=== PATIENT | female | born 1990 | race African-American/Black ===

== ENCOUNTER 2016-09-04 04:50 | Outpatient (CLI) | payer MEDICAID ==
[2016-09-04 05:26] LABS: APPEARANCE,URINE CLOUDY; BILIRUBIN,URINE NEGATIVE (NEGATIVE); GLUCOSE, URINE NEGATIVE (NEGATIVE); KETONES,URINE NEGATIVE (NEGATIVE); LEUKOCYTE ESTERASE,URINE MODERATE (NEGATIVE); NITRITE,URINE NEGATIVE (NEGATIVE); PROTEIN,URINE NEGATIVE (NEGATIVE); URINE SPECIFIC GRAVITY 1.012; UROBILINOGEN,URINE NEGATIVE mg/dL (<2.0)
[2016-09-04 05:41] LABS: URINE BARBITURATES SCREEN NEGATIVE; URINE METHADONE SCREEN NEGATIVE; URINE OPIATES LOW NEGATIVE; URINE PHENCYCLIDINE SCREEN NEGATIVE
--- NOTE | 2016-09-04 10:46 | L&D Admission Assessment ---
LD ADM ASMT Datetime Report Generated by CPN: 09/04/2016 10:45 Weight (lb): 174 (09/04/2016 05:01:QS system process) Weight (kg): 79.1 (09/04/2016 05:01:QS system process) Pain Scale: 2 (09/04/2016 05:46:Samantha Mathews RN) Pain Presence: Intermittent (09/04/2016 05:46:Samantha Mathews RN) Pain Presence: Intermittent (09/04/2016 05:30:Samantha Mathews RN) Pain Type: Contraction (09/04/2016 05:46:Samantha Mathews RN) Pain Type: Contraction (09/04/2016 05:30:Samantha Mathews RN) Pain Location: Abdomen (09/04/2016 05:46:Samantha Mathews RN) Pain Location: Abdomen (09/04/2016 05:30:Samantha Mathews RN) Pain Goal: 1 (09/04/2016 05:46:Samantha Mathews RN) Frequency (min): x1 (09/04/2016 05:46:Samantha Mathews RN) Frequency (min): x2 (09/04/2016 05:30:Samantha Mathews RN) Duration (sec): 120 (09/04/2016 05:46:Samantha Mathews RN) Duration (sec): 40-100 (09/04/2016 05:30:Samantha Mathews RN) Quality: Mild (09/04/2016 05:46:Samantha Mathews RN) Quality: Mild (09/04/2016 05:30:Samantha Mathews RN) Resting Tone Embarrass: Relaxed (09/04/2016 05:46:Samantha Mathews RN) Resting Tone Embarrass: Relaxed (09/04/2016 05:30:Samantha Mathews RN) Contraction Comments: TOCO applied explained to pt (09/04/2016 05:06:Samantha Mathews RN) Dilatation (cm): 3.0 (09/04/2016 06:23:Samantha Mathews RN) Dilatation (cm): 3.0 (09/04/2016 05:05:Samantha Mathews RN) Effacement (%): 80 (09/04/2016 06:23:Samantha Mathews RN) Effacement (%): 80 (09/04/2016 05:05:Samantha Mathews RN) Station: -2 (09/04/2016 06:23:Samantha Mathews RN) Station: -2 (09/04/2016 05:05:Samantha Mathews RN) FHR Baseline Rate (bpm) Baby A: 120 (09/04/2016 05:46:Samantha Mathews RN) FHR Baseline Rate (bpm) Baby A: 120 (09/04/2016 05:30:Samantha Mathews RN) Variability Baby A: Moderate 6-25 bpm (09/04/2016 05:46:Samantha Mathews RN) Variability Baby A: Moderate 6-25 bpm (09/04/2016 05:30:Samantha Mathews RN) Accelerations Baby A: 15X15 (09/04/2016 05:46:Samantha Mathews RN) Accelerations Baby A: None (09/04/2016 05:30:Samantha Mathews RN) Decelerations Baby A: None (09/04/2016 05:46:Samantha Mathews RN) Decelerations Baby A: None (09/04/2016 05:30:Samantha Mathews RN)
--- NOTE | 2016-09-04 10:46 | L&D General Admission ---
General Admit Datetime Report Generated by CPN: 09/04/2016 10:45 INFORMATION Patient Age: 25 (09/01/2016 08:27:QS system process) EDC: 09/04/2016 00:00 (09/04/2016 04:49:Nadia Schofield RN) : 3 (09/04/2016 04:49:Aneta Lynn RN) : 3 (09/04/2016 04:49:Nadia Schofield RN) Para: 1 (09/04/2016 04:49:Nadia Schofield RN) Term: 1 (09/04/2016 04:49:Aneta Lynn RN) Term: 1 (09/04/2016 04:49:Nadia Schofield RN) : 0 (09/04/2016 04:49:Nadia Schofield RN) Spontaneous Abortions: 1 (09/04/2016 04:49:Nadia Schofield RN) Induced Abortions: 0 (09/04/2016 04:49:Nadia Schofield RN) Livin (09/04/2016 04:49:Nadia Schofield RN) Cesareans: 0 (09/04/2016 04:49:Nadia Schofield RN) VBACs: 0 (09/04/2016 04:49:Nadia Schofield RN) Ectopic: 0 (09/04/2016 04:49:Nadia Schofield RN) Multiple Births: 0 (09/04/2016 04:49:Nadia Schofield RN) Baby, Number in Womb: 1 (09/04/2016 04:49:Nadia Schofield RN) CARE 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 Pipe Covering Molder: [facility] (09/04/2016 04:49:Samantha Mathews RN) Month of 1st Visit: 12/2015 (09/04/2016 04:49:Samantha Mathews RN) Adequate Care: Yes (09/04/2016 04:49:Samantha Mathews RN) Height (in): 67 (09/04/2016 05:01:QS system process) ALLERGIES Medication Allergy: No (09/04/2016 04:49:Samantha Mathews RN) Medication Allergies: No Known Allergies (09/04/2016) (09/04/2016 05:00:QS system process) Medication Allergies: No Known Allergies (01/31/2012) (09/01/2016 08:27:QS system process) Latex Allergy: No Latex Allergies (09/04/2016 04:49:Samantha Mathews RN) Food Allergies: n/a (09/04/2016 04:49:Samantha Mathews RN) Environmental Allergies: n/a (09/04/2016 04:49:Samantha Mathews RN) COMMUNICATION Primary Language: Tunisian (09/04/2016 04:49:Samantha Mathews RN) Medical Tx Preferred Language: Tunisian (09/04/2016 04:49:Samantha Mathews RN) Tunisian Communication Ability: Speaks Tunisian; Reads Tunisian (09/04/2016 04:49:Samantha Mathews RN) Communication Barrier(s): None (09/04/2016 04:49:Samantha Mathews RN) DEMOGRAPHICS Address: [address] [place], [place] [id number] (09/01/2016 08:27:QS system process) Zipcode: [address] (09/01/2016 08:27:QS system process) Home (09/01/2016 08:27:QS system process) Work (09/04/2016 04:50:QS system process) Work (09/01/2016 08:27:QS system process) SSN: [id number] (09/01/2016 08:27:QS system process) Next of Kin Name: JENN HENDRICKS (09/01/2016 08:27:QS system process) Next of Kin (09/01/2016 08:27:QS system process) Next of Kin Relationship: SPO (09/01/2016 08:27:QS system process) Date of : 1990 (09/01/2016 08:27:QS system process) Marital Status: Single (09/01/2016 08:27:QS system process) Sex: Female (09/01/2016 08:27:QS system process) Race: (09/01/2016 08:27:QS system process) Ethnicity: Non- or (09/01/2016 08:27:QS system process) Amish: Pentecostal (09/01/2016 08:27:QS system process) DRUG AND ALCOHOL USE Alcohol: No (09/04/2016 04:49:Samantha Mathews RN) Cigarettes: Former Smoker. [id number] (09/04/2016 04:49:Samantha Mathews RN) Cigarette Comments: 1 pack q2-3 days, quit with . 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: [facility] (09/04/2016 04:49:Samantha Mathews RN) Feeding Preference: Breast (09/04/2016 04:49:Samantha Mathews RN) Benefit of Breast Feed Discussed: Yes (09/04/2016 04:49:Samantha Mathews RN) Circumcision: N/A (09/04/2016 04:49:Samantha Mathews RN) Classes Attended: No (09/04/2016 04:49:Samantha Mathews RN) Tubal Ligation: No (09/04/2016 04:49:Samantha Mathews RN) Tubal Authorization Signed: N/A (09/04/2016 04:49:Samantha Mathews RN) Consent: N/A (09/04/2016 04:49:Samantha Mathews RN) Consent Signed: N/A (09/04/2016 04:49:Samantha Mathews RN) Pain Management Plans: Medications (09/04/2016 04:49:Samantha Mathews RN) Other Labor and Delivery Plans: Delayed cord clamping (09/04/2016 04:49:Samantha Mathews RN) Support Person: Jenn Hendricks (09/04/2016 04:49:Samantha Mathews RN) Support Person Relationship: (09/04/2016 04:49:Samantha Mathews RN) Cultural/Spritual Practice: No (09/04/2016 04:49:Samantha Mathews RN) Spir/Cult Dietary Needs: No (09/04/2016 04:49:Samantha Mathews RN) LIVING SITUATION/DISCHARGE PLAN Living Arrangements: House (09/04/2016 04:49:Samantha Mathews RN) Adequate Access to:: Electric; Heat; Refrigeration; Plumbing/Running water; Phone; Transportation (09/04/2016 04:49:Samantha Mathews RN) WIC Program: Yes (09/04/2016 04:49:Samantha Mathews RN) Currently Using Commun Resources: Yes (09/04/2016 04:49:Samantha Mathews RN) Specify Current Resource Used: Medicaid (09/04/2016 04:49:Samantha Mathews RN) Car Seat for Discharge: Yes (09/04/2016 04:49:Samantha Mathews RN) Adoption Requested: No (09/04/2016 04:49:Samantha Mathews RN) LABS Blood Type: A Positive (09/04/2016 04:49:Aneta Lynn RN) Antibody Screen: Negative (09/04/2016 04:49:Aneta Lynn RN) Group Beta Strep: Positive (09/04/2016 04:49:Aneta Lynn RN) Gonorrhea: Negative (09/04/2016 04:49:Aneta Lynn RN) Chlamydia: Negative (09/04/2016 04:49:Aneta Lynn RN) RPR/VDRL: Nonreactive (09/04/2016 04:49:Aneta Lynn RN) Rubella: Immune (09/04/2016 04:49:Aneta Lynn RN) OB/PREVIOUS HISTORY Current Procedures: Ultrasound; NST (09/04/2016 04:49:Samantha Mathews RN) History of Previous : No (09/04/2016 04:49:Samantha Mathews RN) History of Gestational Diabetes: No (09/04/2016 04:49:Samantha Mathews RN) History of PIH: No (09/04/2016 04:49:Samantha Mathews RN) History of Incompetent Cervix: No (09/04/2016 04:49:Samantha Mathews RN) History of Placenta Previa/Abrup: No (09/04/2016 04:49:Samantha Mathews RN) History of Macrosomia: No (09/04/2016 04:49:Samantha Mathews RN) History of IUGR: No (09/04/2016 04:49:Samantha Mathews RN) History of Hemorrhage: No (09/04/2016 04:49:Samantha Mathews RN) History of Loss/Stillborn: No (09/04/2016 04:49:Samantha Mathews RN) History of : No (09/04/2016 04:49:Samantha Mathews RN) History of D (Rh) Sensitization: No (09/04/2016 04:49:Samantha Mathews RN) History Recurrent Loss/Stillborn: No (09/04/2016 04:49:Samantha Mathews RN) History Depression/PP Depression: No (09/04/2016 04:49:Samantha Mathews RN) History of Uterine Anomaly/JOSEPH: No (09/04/2016 04:49:Samantha Mathews RN) History of Infertility: No (09/04/2016 04:49:Samantha Mathews RN) History of ART Treatment: No (09/04/2016 04:49:Samantha Mathews RN) History of JOSEPH: No (09/04/2016 04:49:Samantha Mathews RN) Comments Obstetrical History: G1- , baby girl 01/10, 7lb 3 oz G2- D_C, 04/17 G3- Current prengnancy (09/04/2016 04:49:Aneta Lynn RN) MEDICAL HISTORY Med Hx Diabetes: No (09/04/2016 04:49:Samantha Mathews RN) Med Hx Hypertension: No (09/04/2016 04:49:Samantha Mathews RN) Med Hx Heart Disease: No (09/04/2016 04:49:Samantha Mathews RN) Med Hx Autoimmune Disorder: No (09/04/2016 04:49:Samantha Mathews RN) Med Hx Kidney Disease/UTI: No (09/04/2016 04:49:Samantha Mathews RN) Med Hx Neurologic/Epilepsy: No (09/04/2016 04:49:Samantha Mathews RN) Med Hx Psychiatric Disorders: No (09/04/2016 04:49:Samantha Mathews RN) Med Hx Hepatitis/Liver Disease: No (09/04/2016 04:49:Samantha Mathews RN) Med Hx Varicosities/Phlebitis: No (09/04/2016 04:49:Samantha Mathews RN) Med Hx Thyroid Dysfunction: No (09/04/2016 04:49:Samantha Mathews RN) Med Hx Trauma/Violence: No (09/04/2016 04:49:Samantha Mathews RN) Med Hx Blood Transfusion: No (09/04/2016 04:49:Samantha Mathews RN) Med Hx Pulmonary (Asthma,TB): No (09/04/2016 04:49:Samantha Mathews RN) Med Hx Breast: No (09/04/2016 04:49:Samantha Mathews RN) Med Hx CARDIOLOGIST Surgery: No (09/04/2016 04:49:Samantha Mathews RN) Med Hx Hospitalization/Surgery: No (09/04/2016 04:49:Samantha Mathews RN) Med Hx Anesthetic Complications: No (09/04/2016 04:49:Samantha Mathews RN) Med Hx Abnormal Pap Smear: No (09/04/2016 04:49:Samantha Mathews RN) Other Medical Diseases: No (09/04/2016 04:49:Samantha Mathews RN) Med Hx Significant Family Hx: No (09/04/2016 04:49:Samantha Mathews RN) INFECTIOUS HISTORY Inf Hx Gonorrhea: No (09/04/2016 04:49:Samantha Mathews RN) Inf Hx Chlamydia: Yes (09/04/2016 04:49:Samantha Mathews RN) Inf Hx Syphilis: No (09/04/2016 04:49:Samantha Mathews RN) Inf Hx HIV/AIDS: No (09/04/2016 04:49:Samantha Mathews RN) Inf Hx Human Papilloma Virus: No (09/04/2016 04:49:Samantha Mathews RN) Inf Hx Pt/Partner Genital Herpes: No (09/04/2016 04:49:Samantha Mathews RN) Inf Hx Tuberculosis/Exposure: No (09/04/2016 04:49:Samantha Mathews RN) Inf Hx Hepatitis B,C: No (09/04/2016 04:49:Samantha Mathews RN) Inf Hx Rash or Viral Illness: No (09/04/2016 04:49:Samantha Mathews RN) Details of Infectious Hx: Chlamydia 2011 (09/04/2016 04:49:Samantha Mathews RN) GENETIC HISTORY Gen Hx Age >=35 at [place]: No (09/04/2016 04:49:Samantha Mathews RN) Gen Hx Thalassemia: No (09/04/2016 04:49:Samantha Mathews RN) Gen Hx Congenital Heart Defect: No (09/04/2016 04:49:Samantha Mathews RN) Gen Hx Neural Tube Defect: No (09/04/2016 04:49:Samantha Matehws RN) Gen Hx Down's Syndrome: No (09/04/2016 04:49:Samantha Mathews RN) Gen Hx Tha-Sachs: No (09/04/2016 04:49:Samantha Mathews RN) Gen Hx Nakia: No (09/04/2016 04:49:Samantha Mathews RN) Gen Hx Familial Dysautonomia: No (09/04/2016 04:49:Samantha Mathews RN) Gen Hx Sickle Cell Disease/Trait: No (09/04/2016 04:49:Samantha Mathews RN) Gen Hx Hemophilia/Blood Disorder: No (09/04/2016 04:49:Samantha Mathews RN) Gen Hx Muscular Dystrophy: No (09/04/2016 04:49:Samantha Mathews RN) Gen Hx Cystic Fibrosis: No (09/04/2016 04:49:Samantha Mathews RN) Gen Hx [place] Chorea: No (09/04/2016 04:49:Samantha Mathews RN) Gen Hx Mental Retardation/Autism: No (09/04/2016 04:49:Samantha Mathews RN) Gen Hx Tested for Fragile X: No (09/04/2016 04:49:Samantha Mathews RN) Gen Hx Other Inher/Chromosomal: No (09/04/2016 04:49:Samantha Mathews RN) Gen Hx Maternal Metabolic DO: No (09/04/2016 04:49:Samantha Mathews RN) Gen Hx Pt Father or FOB Defect: No (09/04/2016 04:49:Samantha Mathews RN) Gen Hx Other Genetic History: No (09/04/2016 04:49:Samantha Mathews RN) Gen Hx Drugs/Meds since LMP: No (09/04/2016 04:49:Samantha Mathews RN)
--- NOTE | 2016-09-04 10:46 | L&D Discharge Summary ---
OB Discharge Summary Datetime Report Generated by CPN: 09/04/2016 10:45 DISCHARGE DIAGNOSIS Number of Babies in Womb: 1 Parity: 1
--- NOTE | 2016-09-04 10:46 | L&D Flow Sheet ---
LD Flowsheet Datetime Report Generated by CPN: 09/04/2016 10:45 Datetime: 09/04/2016 06:23 Dilatation (cm): 3.0 (Samantha Mathews RN) Effacement (%): 80 (Samantha Mathews RN) Station: -2 (Samantha Mathews RN) Exam by: C Darell RN (Samantha Mathews RN) Communication: Provider Orders Received; Call/Page Placed to Provider (Samantha Mathews RN) Communication Comments: Call placed to Dr Jaleel MD made aware of EFM and SVE. Orders received for discharge. (Samantha Mathews RN) Datetime: 09/04/2016 05:46 Stage of : Antepartum (Samantha Mathews RN) Monitor Mode: External (Samantha Mathews RN) Monitor Interventions for UA: [place] Adjusted (Samantha Mathews RN) Frequency (min): x1 (Samantha Mathews RN) Quality: Mild (Samantha Mathews RN) Duration (sec): 120 (Samantha Mathews RN) Resting Tone (Palpate): Relaxed (Samantha Mathews RN) Monitor Mode: External US (Samantha Mathews RN) FHR Baseline Rate : 120 (Samantha Mathews RN) FHR Baseline Changes: No Baseline Change (Samantha Mathews RN) Variability: Moderate 6-25 bpm (Samantha Mathews RN) Accelerations: 15X15 (Samantha Mathews RN) Decelerations: None (Samantha Mathews RN) Pain Scale: 2 (Samantha Mathews RN) Pain Presence: Intermittent (Samantha Mathews RN) Pain Type: Contraction (Samantha Mathews RN) Pain Location: Abdomen (Samantha Mathews RN) Pain Goal: 1 (Samantha Mathews RN) Pain Relief Measures: Comfort Measures (Samantha Mathews RN) Pain Coping: Talking Through Contractions (Samantha Mathews RN) Patient Position/Activity: Right Tilt; Semi-Fowlers (Samantha Mathews RN) Comfort Measures: Breathing/Relaxation; Coaching; Family Support (Samantha Mathews RN) Communication: RN at Bedside; RN Reviewed Strip (Samantha Mathews RN) LaborFlag: Antepartum (QS system process) Datetime: 09/04/2016 05:44 Maternal Comments: monitor removed to allow pt to ambulate around unit (Samantha Mathews RN) Datetime: 09/04/2016 05:39 NBP Sys/Maggy/Mean (mmHg): 96 (QS system process) : 54 (QS system process) : 68 (QS system process) Pulse: 83 (QS system process) LaborFlag: Antepartum (QS system process) Datetime: 09/04/2016 05:30 Stage of : Antepartum (Samantha Mathews RN) Monitor Mode: External (Samantha Mathews RN) Frequency (min): x2 (Samantha Mathews RN) Quality: Mild (Samantha Mathews RN) Duration (sec): 40-100 (Samantha Mathews RN) Resting Tone (Palpate): Relaxed (Samantha Mathews RN) Monitor Mode: External US (Samantha Mathews RN) Monitor Interventions for FHR: Ultrasound Adjusted (Samantha Mathews RN) FHR Baseline Rate : 120 (Samantha Mathews RN) FHR Baseline Changes: No Baseline Change (Samantha Mathews RN) Variability: Moderate 6-25 bpm (Samantha Mathews RN) Accelerations: None (Samantha Mathews RN) Decelerations: None (Samantha Mathews, RN) Pain Presence: Intermittent (Samantha Mathwes RN) Pain Type: Contraction (Samantha Mathews RN) Pain Location: Abdomen (Samantha Mathews RN) Pain Relief Measures: Comfort Measures (Samantha Mathews RN) Pain Coping: Talking Through Contractions (Samantha Mathews RN) Patient Position/Activity: Right Tilt; Semi-Fowlers (Smaantha Mathews, JACQUELYN) Comfort Measures: Breathing/Relaxation; Coaching; Family Support (Samantha Mathews RN) Communication: RN at Bedside; RN Reviewed Strip (Samantha Mathews RN) LaborFlag: Antepartum (QS system process) Datetime: 09/04/2016 05:18 I/O Interventions: Popsicle (Samantha Mathews RN) Datetime: 09/04/2016 05:09 NBP Sys/Maggy/Mean (mmHg): 91 (QS system process) : 52 (QS system process) : 67 (QS system process) Pulse: 74 (QS system process) Datetime: 09/04/2016 05:07 Comments: US applied and explained to pt (Samantha Errichiello, RN) Datetime: 09/04/2016 05:06 Contraction Comments: TOCO applied explained to pt (Samantha Errichiello, RN) Datetime: 09/04/2016 05:05 Dilatation (cm): 3.0 (Samantha Mathews RN) Effacement (%): 80 (Samantha Mathews RN) Station: -2 (Samantha Mathews RN) Exam by: Carlos Lozoya RN (Samantha Mathews RN) Vaginal Bleeding: None (Samantha Mathews RN) Cervix, Consistency: Soft (Samantha Mathews RN) Cervix, Position: Midposition (Samantha Mathews RN)
== END 2016-09-04 06:35 | disposition home or self-care (01) ==
LOC: LC 04:50
PROVIDERS: ATTEND Obstetrics & Gynecology
PROC: 4A1HXCZ Monitoring of Products of Conception, Cardiac Rate, External Approach (ICD-10-PCS; principal; 2016-09-04)
DX: O47.1 False labor at or after 37 completed weeks of gestation (principal); Z3A.40 40 weeks gestation of pregnancy
CPT/HCPCS: 80307; 81005

== ENCOUNTER 2016-09-04 15:39 | Inpatient (IN) | payer MEDICAID ==
[2016-09-04] MEDS ORDERED: OXYTOCIN 10 UNIT/ML VIAL ONE (16:01)
--- NOTE | 2016-09-04 16:01 | L&D Flow Sheet ---
LD Flowsheet Datetime Report Generated by CPN: 09/04/2016 16:00 Datetime: 09/04/2016 15:58 Dilatation (cm): 10.0 (Sary Bellavance, RNC) Datetime: 09/04/2016 06:23 Dilatation (cm): 3.0 (Samantha Mathews RN) Effacement (%): 80 (Samantha Mathews RN) Station: -2 (Samantha Mathews RN) Exam by: C Fore RN (Samantha Errichiello, RN) Communication: Provider Orders Received; Call/Page Placed to Provider (Samantha Mathews RN) Communication Comments: Call placed to Dr Jaleel MD made aware of EFM and SVE. Orders received for discharge. (Samantha Mathews RN) Datetime: 09/04/2016 05:46 Stage of : Antepartum (Samantha Mathews RN) Monitor Mode: External (Samantha Mathews RN) Monitor Interventions for UA: [place] Adjusted (Samantha Mathews RN) Frequency (min): x1 (Samantha Mathews RN) Quality: Mild (Samantha Mathews RN) Duration (sec): 120 (Samantha Mathews RN) Resting Tone (Palpate): Relaxed (Samantha Mathews RN) Monitor Mode: External US (Samantha Mathews RN) FHR Baseline Rate : 120 (Samantha Mathews RN) FHR Baseline Changes: No Baseline Change (Samantha Mathews RN) Variability: Moderate 6-25 bpm (Samantha Mathews RN) Accelerations: 15X15 (Samantha Mathews RN) Decelerations: None (Samantha Mathews RN) Pain Scale: 2 (Samantha Mathews RN) Pain Presence: Intermittent (Samantha Mathews RN) Pain Type: Contraction (Samantha Mathews RN) Pain Location: Abdomen (Samantha Mathews RN) Pain Goal: 1 (Samantha Mathews RN) Pain Relief Measures: Comfort Measures (Samantha Mathews RN) Pain Coping: Talking Through Contractions (Samantha Mathews RN) Patient Position/Activity: Right Tilt; Semi-Fowlers (Samantha Mathews RN) Comfort Measures: Breathing/Relaxation; Coaching; Family Support (Samantha Mathews RN) Communication: RN at Bedside; RN Reviewed Strip (Samantha Mathews RN) LaborFlag: Antepartum (QS system process) Datetime: 09/04/2016 05:44 Maternal Comments: monitor removed to allow pt to ambulate around unit (Samantha Mathews RN) Datetime: 09/04/2016 05:39 NBP Sys/Maggy/Mean (mmHg): 96 (QS system process) : 54 (QS system process) : 68 (QS system process) Pulse: 83 (QS system process) LaborFlag: Antepartum (QS system process) Datetime: 09/04/2016 05:30 Stage of : Antepartum (Samantha Mathews RN) Monitor Mode: External (Samantha Mathews RN) Frequency (min): x2 (Samantha Mathews RN) Quality: Mild (Samantha Mathews RN) Duration (sec): 40-100 (Samantha Mathews RN) Resting Tone (Palpate): Relaxed (Samantha Mathews RN) Monitor Mode: External US (Samantha Mathews RN) Monitor Interventions for FHR: Ultrasound Adjusted (Samantha Mathews RN) FHR Baseline Rate : 120 (Samantha Mathews RN) FHR Baseline Changes: No Baseline Change (Samantha Mathews RN) Variability: Moderate 6-25 bpm (Samantha Mathews RN) Accelerations: None (Samantha Mathews RN) Decelerations: None (Samantha Mathews RN) Pain Presence: Intermittent (Samantha Mathews RN) Pain Type: Contraction (Samantha Mathews RN) Pain Location: Abdomen (Samantha Mathews RN) Pain Relief Measures: Comfort Measures (Samantha Mathews RN) Pain Coping: Talking Through Contractions (Samantha Mathews RN) Patient Position/Activity: Right Tilt; Semi-Fowlers (Samantha Mathews RN) Comfort Measures: Breathing/Relaxation; Coaching; Family Support (Samantha Mathews RN) Communication: RN at Bedside; RN Reviewed Strip (Samantha Mathews RN) LaborFlag: Antepartum (QS system process) Datetime: 09/04/2016 05:18 I/O Interventions: Popsicle (Samantha Errichiello, RN) Datetime: 09/04/2016 05:09 NBP Sys/Maggy/Mean (mmHg): 91 (QS system process) : 52 (QS system process) : 67 (QS system process) Pulse: 74 (QS system process) Datetime: 09/04/2016 05:07 Comments: US applied and explained to pt (Samantha Errichiello, RN) Datetime: 09/04/2016 05:06 Contraction Comments: TOCO applied explained to pt (Samantha Mathews RN) Datetime: 09/04/2016 05:05 Dilatation (cm): 3.0 (Samantha Mathews RN) Effacement (%): 80 (Samantha Mathews RN) Station: -2 (Samantha Mathews RN) Exam by: Carlos Lozoya RN (Samantha Mathews RN) Vaginal Bleeding: None (Samantha Mathews RN) Cervix, Consistency: Soft (Samantha Mathews RN) Cervix, Position: Midposition (Samantha Mathews RN)
[2016-09-04] MEDS ORDERED: OXYTOCIN/NORMAL SALINE 20 UNIT/1,000 ML RTUINJ ONE (16:02)
[2016-09-04] MEDS ORDERED: LIDOCAINE 1% INJ-PF (10 MG/ML) 30 ML SDV ONE (16:02)
[2016-09-04] MEDS ORDERED: MISOPROSTOL 0.2 MG TABLET ONE (16:02)
[2016-09-04] MEDS ORDERED: BENZOCAINE/MENTHOL AEROSOL SPRAY 56 ML TOP PRN (16:37)
[2016-09-04] MEDS ORDERED: DIBUCAINE 1% OINTMENT 28 GM TP PRN (16:37)
[2016-09-04] MEDS ORDERED: OXYTOCIN/NORMAL SALINE 1,000 ML IV PRN (16:37)
[2016-09-04] MEDS ORDERED: ACETAMINOPHEN WITH CODEINE #3 TABLET PO PRN ×2 (16:37)
[2016-09-04] MEDS ORDERED: DIPH/PERTUSS(ACELL)/TETANUS VAC/PF 0.5 ML SYR (>=10YO) IM PRN (16:37)
[2016-09-04] MEDS ORDERED: MEASLES,MUMPS&RUBELLA VACC/PF 0.5 ML VIAL SUBCUT PRN (16:37)
[2016-09-04] MEDS ORDERED: ZOLPIDEM TARTRATE 5 MG TABLET PO PRN (16:37)
[2016-09-04] MEDS ORDERED: IBUPROFEN 800 MG TABLET ONE (17:20)
[2016-09-04] MEDS: IBUPROFEN 800 MG TABLET PO SCH (17:21)
--- NOTE | 2016-09-04 18:01 | L&D Flow Sheet ---
LD Flowsheet Datetime Report Generated by CPN: 09/04/2016 18:00 Datetime: 09/04/2016 17:47 NBP Sys/Maggy/Mean (mmHg): 113 (QS system process) : 67 (QS system process) : 82 (QS system process) Pulse: 64 (QS system process) Datetime: 09/04/2016 17:46 NBP Sys/Maggy/Mean (mmHg): 114 (QS system process) : 68 (QS system process) : 84 (QS system process) Pulse: 71 (QS system process) Datetime: 09/04/2016 17:32 Stage of : Recovery (Ramya Moreno RN) NBP Sys/Maggy/Mean (mmHg): 116 (QS system process) : 76 (QS system process) : 90 (QS system process) Pulse: 76 (QS system process) Respirations: 18 (Ramya Moreno RN) Pain Scale: 3 (Ramya Moreno RN) Pain Presence: Intermittent (Ramya Moreno RN) Pain Type: Cramping (Ramya Moreno RN) Pain Location: Abdomen (Ramya Moreno RN) Pain Relief Measures: Comfort Measures (Ramya Moreno RN) Datetime: 09/04/2016 17:17 NBP Sys/Maggy/Mean (mmHg): 130 (QS system process) : 73 (QS system process) : 96 (QS system process) Pulse: 70 (QS system process) Datetime: 09/04/2016 17:02 Stage of : Recovery (Ramya Moreno RN) NBP Sys/Maggy/Mean (mmHg): 124 (QS system process) : 67 (QS system process) : 87 (QS system process) Pulse: 81 (QS system process) Respirations: 18 (Ramya Moreno RN) Pain Scale: 0 (Ramya Moreno RN) Pain Presence: None/Denies (Ramya Moreno RN) Pain Type: N/A (Ramya Moreno RN) Pain Relief Measures: Comfort Measures (Ramya Moreno RN) Pain Assessment Comments: (Ramya Moreno RN) Datetime: 09/04/2016 16:47 NBP Sys/Maggy/Mean (mmHg): 130 (QS system process) : 59 (QS system process) : 85 (QS system process) Pulse: 66 (QS system process) Datetime: 09/04/2016 16:32 NBP Sys/Maggy/Mean (mmHg): 122 (QS system process) : 74 (QS system process) : 93 (QS system process) Pulse: 80 (QS system process) Respirations: 18 (Sary Bellavance, RNC) Datetime: 09/04/2016 16:11 NBP Sys/Maggy/Mean (mmHg): 116 (QS system process) : 60 (QS system process) : 81 (QS system process) Pulse: 75 (QS system process) Respirations: 16 (Sary Bellavance, RNC) Temperature Route: Oral (Sary Bellavance, RNC) Datetime: 09/04/2016 16:10 Stage of : Recovery (AURY Jackson) Datetime: 09/04/2016 16:03 Stage 2 Comments: of female Apgars 9/9 (AURY Jackson) Communication: RN at Bedside; Provider at Bedside (AURY Jackson)
[2016-09-04 18:02] LABS: HEMATOCRIT 36.5 % (36.0-47.0); HEMOGLOBIN 12.5 g/dL (12.0-15.5); MEAN CORPUSCULAR HEMOGLOBIN 32.9 pg (27.0-33.4); MEAN CORPUSCULAR HGB CONC 34.2 g/dL (32.0-36.0); MEAN CORPUSCULAR VOLUME 96 fl (80-97); RED BLOOD COUNT 3.79 10^6/uL (3.72-5.28); RED CELL DISTRIBUTION WIDTH 12.9 % (11.5-14.0); WHITE BLOOD COUNT 10.7 10^3/uL (4.0-10.5)
[2016-09-04 19:34] LABS: BASOPHILS % (MANUAL) 0 % (0-2); EOSINOPHILS % (MANUAL) 1 % (0-6); LYMPHOCYTES % (MANUAL) 5 % (13-45); TOTAL CELLS COUNTED 100
[2016-09-04 19:35] LABS: TOXIC GRANULATION SLIGHT
--- NOTE | 2016-09-04 19:51 | Admission Physical ---
Datetime Report Generated by CPN: 09/04/2016 19:50 CURRENT ADMISSION Hx Assessment: The History has been Reviewed and is Current Chief Complaint: Uterine Contractions Indication for Induction: Not Applicable Admit Impression- Other: GBS + Admit Plan: Admit to Unit; Initiate Labor Protocol ALLERGIES Medication Allergies: No Medication Allergies: No Known Allergies (09/04/2016) Medication Allergies: No Known Allergies (01/31/2012) Latex: No Latex Allergies Food Allergies: n/a Environmental Allergies: n/a OBSTETRICAL HISTORY EDC: 09/04/2016 00:00 : 3 : 3 Para: 1 Term: 1 Term: 1 : 0 SAB: 1 IAB: 0 Ectopic: 0 Livin Cesareans: 0 VBACs: 0 Multiple Births: 0 Gestational Diabetes: No Rh Sensitization: No Incompetent Cervix: No JOSEPH: No Infertility: No ART Treatment: No Uterine Anomaly: No IUGR: No Hx Previous C/S: No Macrosomia: No Hx Loss/Stillborn: No PIH: No Hx : No Placenta Previa/Abruption: No Depression/PP Depression: No PTL/PROM: No Post Hemorrhage: No Current Procedures: Ultrasound; NST Obstetrical History Comments: G1- , baby girl 01/10, 7lb 3 oz G2- D_C, 04/17 G3- Current prengnancy SEE RECORDS Alcohol: No Marijuana : No Cocaine: No Other Illicit Drugs: No Cigarettes: Former Smoker. [id number] Cigarette Comments: 1 pack q2-3 days, quit with . MEDICAL HISTORY Diabetes: No Blood Transfusion: No Pulmonary Disease (Asthma, TB): No Breast Disease: No Hypertension: No Family Reunification Specialist Surgery: No Heart Disease: No Hosp/Surgery: No Autoimmune Disorder: No Anesthetic Complications: No Kidney Disease: No Abnormal Pap Smear: No Neuro/Epilepsy: No Psychiatric Disorders: No Other Medical Diseases: No Hepatitis/Liver Disease: No Significant Family History: No Varicosities/Phlebitis: No Trauma/Violence : No Thyroid Dysfunction: No INFECTIOUS HISTORY Gonorrhea: No Genital Herpes: No Chlamydia: Yes Tuberculosis: No Syphilis: No Hepatitis: No HIV/AIDS Exposure: No Rash or Viral Illness: No HPV: No Infectious History Comments: Chlamydia 2011 PHYSICAL EXAM General: Normal HEENT: Normal Neurologic: Normal Thyroid: Deferred Heart: Normal Lungs: Normal Breast: Normal Back: Normal Abdomen: Normal Genitourinary Exam: Normal Extremities: Normal DTRs: Normal Pelvic Type: Adequate Vital Signs: Reviewed VAGINAL EXAM Dilatation: 9 Effacement: 100 Station: 0 Contraction Comments: 2 MEMBRANES Membranes: Ruptured FETUS A EGA: 40.0 Monitoring: External US FHR- Baseline: 120 Variability: Moderate 6-25bpm Accelerations: 15X15 FHR Category: Category I Admit Comment: Pt admited to L _ D in active labor, 9 cm/100/0, bbow SROM GBS +, delivery imminent, peds notified See record Anticipate PLANS FOR LABOR AND DELIVERY Pain Management: Medications Feeding Preference: Breast Benefit of Breast Feed Discussed: Yes Circumcision: N/A INFORMED CONSENT Assignment: Jolie Dobbs MD Signature: with User ID: Alize : with User ID: [email or web address]
[2016-09-05] MEDS: DOCUSATE SODIUM 100 MG CAPSULE PO SCH ×3 (00:43→17:46)
[2016-09-05] MEDS: FERROUS SULFATE 325 MG TABLET PO SCH ×3 (00:43→17:46)
[2016-09-05] MEDS: IBUPROFEN 800 MG TABLET PO SCH ×3 (05:16→22:15)
[2016-09-05 07:14] LABS: HEMATOCRIT 34.5 % (36.0-47.0); HEMOGLOBIN 11.7 g/dL (12.0-15.5); HGB HCT DIFFERENCE 0.6; MEAN CORPUSCULAR HEMOGLOBIN 32.7 pg (27.0-33.4); MEAN CORPUSCULAR HGB CONC 33.9 g/dL (32.0-36.0); MEAN CORPUSCULAR VOLUME 97 fl (80-97); RED BLOOD COUNT 3.58 10^6/uL (3.72-5.28); RED CELL DISTRIBUTION WIDTH 12.7 % (11.5-14.0); WHITE BLOOD COUNT 9.3 10^3/uL (4.0-10.5)
--- NOTE | 2016-09-05 11:08 | PDOC PROGRESS REPORT ---
Subjective-OB Subjective: Post Delivery Day: 1 25 year old. Denies any needs at this time, lochia is stable, pain is well controlled, voiding without difficulty. Physical Exam (OB) Vital Signs: Temp Pulse Resp BP Pulse Ox 97.8 F 74 16 128/89 H 94 09/05/16 07:34 09/05/16 07:34 09/05/16 07:34 09/05/16 07:34 09/05/16 07:34 Intake & Output 09/04/16 09/05/16 09/06/16 06:59 06:59 06:59 Weight 89.2 kg - Lochia Lochia Amount: Scant < 10 ml Lochia Color: Rubra/Red - Abdomen Description: Soft Hernia Present: No Fundal Description: Firm, Midline Fundal Height: u/u - u/2 Objective-Diagnostic Laboratory: 09/05/16 06:53 09/04/16 09/04/16 09/05/16 17:18 17:18 06:53 WBC 10.7 H 9.3 RBC 3.79 3.58 L Hgb 12.5 11.7 L Hct 36.5 34.5 L MCV 96 97 MCH 32.9 32.7 MCHC 34.2 33.9 RDW 12.9 12.7 Plt Count 210 220 Seg Neutrophils % Not Reportable Lymphocytes % Not Reportable Monocytes % Not Reportable Eosinophils % Not Reportable Basophils % Not Reportable Absolute Neutrophils Not Reportable Absolute Lymphocytes Not Reportable Absolute Monocytes Not Reportable Absolute Eosinophils Not Reportable Absolute Basophils Not Reportable Blood Type A POSITIVE Antibody Screen NEGATIVE Assessment and Plan(PN) - Assessment and Plan (1) Vaginal delivery Is this a current diagnosis for this admission?: YesPlan: routine pp care GBS +, un tx (2) Precipitate labor, delivered, current hospitalization Is this a current diagnosis for this admission?: YesPlan: gbs pos, untx - Time Spent with Patient Time with patient: Less than 15 minutes Critical Time spent with patient: Less than 15 minutes Medications reviewed and adjusted accordingly: Yes - Disposition Anticipated Discharge: Home Within: within 24 hours
[2016-09-05] MEDS: SENNOSIDES/DOCUSATE 8.6-50 MG 1 EACH TABLET PO SCH (11:17)
[2016-09-05] MEDS: PRENATAL VITAMIN W-O CA NO5/FE FUMARATE/FA CAPSULE PO SCH (11:18)
[2016-09-05] MEDS: SODIUM CHLORIDE NASAL SPRAY 44 ML NASL SCH ×2 (14:54→22:16)
--- NOTE | 2016-09-05 18:01 | L&D Current Admission ---
Current Admit Datetime Report Generated by CPN: 09/05/2016 18:00 ADMISSION INFORMATION Current Admit Date/Time: 09/04/2016 16:20 (09/04/2016 16:00:AURY Jackson) Reason for Admission: Onset of Labor (09/04/2016 16:00:AURY Jackson) Chief Complaint: Contractions (09/04/2016 16:00:AURY Jackson) EGA per Dates: 40.0 (09/04/2016 16:00:QS system process) Method of Arrival: Wheelchair (09/04/2016 16:00:AURY Jackson) Admitted From: Home (09/04/2016 16:00:AURY Jackson) Reason for Induction: Not Applicable (09/04/2016 16:00:AURY Jackson) Records Available: Yes (09/04/2016 16:00:AURY Jackson) General Admission Information: Reviewed (09/04/2016 16:00:Sary Bellavance, RNC) BELONGINGS/ADVANCED DIRECTIVES Valuables/Personal Effects: None (09/04/2016 16:00:Sarywendy Tobiase, RNC) Disposition of Belongings: Kept with Patient (09/04/2016 16:00:Sary Bellavance, RNC) Advance Direct for Healthcare: No, and Wants No Information (09/04/2016 16:00:Sary Michelinee, RNC) Durable Power of Instrument Man: No (09/04/2016 16:00:Sary Bellavance, RNC) Living Will: No (09/04/2016 16:00:Sary Bellavance, RNC) Organ Donor: No (09/04/2016 16:00:Sary Bellavance, RNC) Pt Rights Information Given: Yes (09/04/2016 16:00:Sary Bellavance, RNC) Pt Understands Pt Rights: Yes (09/04/2016 16:00:Sary Bellavance, RNC) LEARNING ASSESSMENT Knowledge Level: Understands L_D Process; Understands Care Activities; Understands Diagnosis (09/04/2016 16:00:AURY Jackson) Barriers to Learning: None (09/04/2016 16:00:AURY Jackson) Learning Readiness: Motivated (09/04/2016 16:00:AURY Jackson) Learns Best By: 1 to 1 Instruction; Reading; Videos; Group Discussion; Demonstration (09/04/2016 16:00:AURY Jackson) Learning Needs: Labor and Delivery Process; Pain Management; Symptoms to Report; Treatment Plan; Medication; Diagnosis; Nutrition; Equipment; Infant Care; Community Resources (09/04/2016 16:00:AURY Jackson) DOMESTIC VIOLANCE SCREENING Dom Viol Threatened/Hurt: No (09/04/2016 16:00:AURY Jackson) Hx of Abuse/Neglect past 2yrs: No (09/04/2016 16:00:AURY Jackson) Feel Unsafe Going Home: No (09/04/2016 16:00:AURY Jackson) Addt'l Observ Indicating Abuse: No (09/04/2016 16:00:AURY Jackson) Reason Unable to Complete Screen: N/A, Screen Completed (09/04/2016 16:00:AURY Jackson) Considered Personal Harm/Suicide: No (09/04/2016 16:00:AURY Jackson) NUTRITIONAL/FUNCTIONAL SCREENING Problem with Appetite >5 Days: No (09/04/2016 16:00:AURY Jackson) Chew/Swallow Difficulties: No (09/04/2016 16:00:AURY Jackson) Inappropriate Wt Gain/Loss: No (09/04/2016 16:00:AURY Jackson) Presence Skin Breakdown/Ulcer: No (09/04/2016 16:00:AURY Jackson) Special Diet: No (09/04/2016 16:00:AURY Jackson) Pt Requests Counter Top Maker Visit: No (09/04/2016 16:00:AURY Jackson) Hx of Any of the Following?: N/A (09/04/2016 16:00:AURY Jackson) New Diagnosis of: N/A (09/04/2016 16:00:AURY Jackson) Requires Assist w/Ambulation: Ofelia (09/04/2016 16:00:AURY Jackson) Uses Assist Device to Ambulate: No (09/04/2016 16:00:AURY Jackson) Pt Requires Help w/ADL's: Ofelia (09/04/2016 16:00:AURY Jackson)
--- NOTE | 2016-09-05 18:01 | L&D General Admission ---
General Admit Datetime Report Generated by CPN: 09/05/2016 18:00 INFORMATION Patient Age: 25 (09/01/2016 08:27:QS system process) EDC: 09/04/2016 00:00 (09/04/2016 04:49:Nadia Schofield RN) : 3 (09/04/2016 04:49:Aneta Lynn RN) Para: 1 (09/04/2016 04:49:Nadia Schofield RN) Term: 1 (09/04/2016 04:49:Aneta Lynn RN) : 0 (09/04/2016 04:49:Nadia Schofield RN) Spontaneous Abortions: 1 (09/04/2016 04:49:Nadia Schofield RN) Induced Abortions: 0 (09/04/2016 04:49:Nadia Schofield RN) Livin (09/04/2016 04:49:Nadia Schofield RN) Cesareans: 0 (09/04/2016 04:49:Nadia Schofield RN) VBACs: 0 (09/04/2016 04:49:Nadia Schofield RN) Ectopic: 0 (09/04/2016 04:49:Nadia Schofield RN) Multiple Births: 0 (09/04/2016 04:49:Nadia Schofield RN) Baby, Number in Womb: 1 (09/04/2016 04:49:Nadia Schofield RN) CARE Primary Director [facility] (09/04/2016 04:49:Samantha Mathews RN) Month of 1st Visit: 12/2015 (09/04/2016 04:49:Samantha Mathews RN) Adequate Care: Yes (09/04/2016 04:49:Samantha Mathews RN) Height (in): 64 (09/04/2016 23:10:QS system process) ALLERGIES Medication Allergy: No (09/04/2016 04:49:Samantha Mathews RN) Medication Allergies: No Known Allergies (09/04/2016) (09/04/2016 05:00:QS system process) Latex Allergy: No Latex Allergies (09/04/2016 04:49:Samantha Mathews RN) Food Allergies: n/a (09/04/2016 04:49:Samantha Mathews RN) Environmental Allergies: n/a (09/04/2016 04:49:Samantha Mathews RN) COMMUNICATION Primary Language: Kosovan (09/04/2016 04:49:Samantha Mathews RN) Medical Tx Preferred Language: Kosovan (09/04/2016 04:49:Samantha Mathews RN) Kosovan Communication Ability: Speaks Kosovan; Reads Kosovan (09/04/2016 04:49:Samantha Mathews RN) Communication Barrier(s): None (09/04/2016 04:49:Samantha Mathews RN) DEMOGRAPHICS [facility] [place] [address] (09/01/2016 08:27:QS system process) Zipcode: [address] (09/01/2016 08:27:QS system process) Home (09/01/2016 08:27:QS system process) Work (09/04/2016 04:50:QS system process) N: [phone] (09/01/2016 08:27:QS system process) Next of Kin Name: JENN HENDRICKS (09/01/2016 08:27:QS system process) Next of Kin (09/01/2016 08:27:QS system process) Next of Kin Relationship: SPO (09/01/2016 08:27:QS system process) Date of : 1990 (09/01/2016 08:27:QS system process) Marital Status: Single (09/01/2016 08:27:QS system process) Sex: Female (09/01/2016 08:27:QS system process) Race: (09/01/2016 08:27:QS system process) Ethnicity: Non- or (09/01/2016 08:27:QS system process) Amish: Yazidism (09/01/2016 08:27:QS system process) DRUG AND ALCOHOL USE Alcohol: No (09/04/2016 04:49:Samantha Mathews RN) Cigarettes: Former Smoker. [id number] (09/04/2016 04:49:Samantha Mathews RN) Cigarette Comments: 1 pack q2-3 days, quit with . 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[facility] [employer] (09/04/2016 04:49:Samantha Mathews RN) Feeding Preference: Breast (09/04/2016 04:49:Samantha Mathews RN) Benefit of Breast Feed Discussed: Yes (09/04/2016 04:49:Samantha Mathews RN) Circumcision: N/A (09/04/2016 04:49:Samantha Mathews RN) Classes Attended: No (09/04/2016 04:49:Samantha Mathews RN) Tubal Ligation: No (09/04/2016 04:49:Samantha Mathews RN) Tubal Authorization Signed: N/A (09/04/2016 04:49:Samantha Mathews RN) Consent: N/A (09/04/2016 04:49:Samantha Mathews RN) Consent Signed: N/A (09/04/2016 04:49:Samantha Mathews RN) Pain Management Plans: Medications (09/04/2016 04:49:Samantha Mathews RN) Other Labor and Delivery Plans: Delayed cord clamping (09/04/2016 04:49:Samantha Mathews RN) Support Person: Jenn Hendricks (09/04/2016 04:49:Samantha Mathews RN) Support Person Relationship: (09/04/2016 04:49:Samantha Mathews RN) Cultural/Spritual Practice: No (09/04/2016 04:49:Samantha Mathews RN) Spir/Cult Dietary Needs: No (09/04/2016 04:49:Samantha Mathews RN) LIVING SITUATION/DISCHARGE PLAN Living Arrangements: House (09/04/2016 04:49:Samantha Mathews RN) Adequate Access to:: Electric; Heat; Refrigeration; Plumbing/Running water; Phone; Transportation (09/04/2016 04:49:Samantha Mathews RN) WIC Program: Yes (09/04/2016 04:49:Samantha Mathews RN) Currently Using Commun Resources: Yes (09/04/2016 04:49:Samantha Mathews RN) Specify Current Resource Used: Medicaid (09/04/2016 04:49:Samantha Mathews RN) Car Seat for Discharge: Yes (09/04/2016 04:49:Samantha Mathews RN) Adoption Requested: No (09/04/2016 04:49:Samantha Mathews RN) LABS Blood Type: A Positive (09/04/2016 04:49:Aneta Lynn RN) Antibody Screen: Negative (09/04/2016 04:49:Aneta Lynn RN) Hemoglobin: 11.7 L (09/05/2016 06:53:QS system process) Hematocrit: 34.5 L (09/05/2016 06:53:QS system process) MCV: 97 (09/05/2016 06:53:QS system process) Group Beta Strep: Positive (09/04/2016 04:49:Aneta Lynn RN) Gonorrhea: Negative (09/04/2016 04:49:Aneta Lynn RN) Chlamydia: Negative (09/04/2016 04:49:Aneta Lynn RN) RPR/VDRL: Nonreactive (09/04/2016 04:49:Aneta Lynn RN) Rubella: Immune (09/04/2016 04:49:Aneta Lynn RN) OB/PREVIOUS HISTORY Current Procedures: Ultrasound; NST (09/04/2016 04:49:Samantha Mathews RN) History of Previous : No (09/04/2016 04:49:Samantha Mathews RN) History of Gestational Diabetes: No (09/04/2016 04:49:Samantha Mathews RN) History of PIH: No (09/04/2016 04:49:Samantha Mathews RN) History of Incompetent Cervix: No (09/04/2016 04:49:Samantha Mathews RN) History of Placenta Previa/Abrup: No (09/04/2016 04:49:Samantha Mathews RN) History of Macrosomia: No (09/04/2016 04:49:Samantha Mathews RN) History of IUGR: No (09/04/2016 04:49:Samantha Mathews RN) History of Hemorrhage: No (09/04/2016 04:49:Samantha Mathews RN) History of Loss/Stillborn: No (09/04/2016 04:49:Samantha Mathews RN) History of : No (09/04/2016 04:49:Samantha Mathews RN) History of D (Rh) Sensitization: No (09/04/2016 04:49:Samantha Mathews RN) History Recurrent Loss/Stillborn: No (09/04/2016 04:49:Samantha Mathews RN) History Depression/PP Depression: No (09/04/2016 04:49:Samantha Mathews RN) History of Uterine Anomaly/JOSEPH: No (09/04/2016 04:49:Samantha Mathews RN) History of Infertility: No (09/04/2016 04:49:Samantha Mathews RN) History of ART Treatment: No (09/04/2016 04:49:Samantha Mathews RN) History of JOSEPH: No (09/04/2016 04:49:Samantha Mathews RN) Comments Obstetrical History: G1- , baby girl 01/10, 7lb 3 oz G2- D_C, 04/17 G3- Current prengnancy (09/04/2016 04:49:Aneta Lynn RN) MEDICAL HISTORY Med Hx Diabetes: No (09/04/2016 04:49:Samantha Mathews RN) Med Hx Hypertension: No (09/04/2016 04:49:Samantha Mathews RN) Med Hx Heart Disease: No (09/04/2016 04:49:Samantha Mathews RN) Med Hx Autoimmune Disorder: No (09/04/2016 04:49:Samantha Mathews RN) Med Hx Kidney Disease/UTI: No (09/04/2016 04:49:Samantha Mathews RN) Med Hx Neurologic/Epilepsy: No (09/04/2016 04:49:Samantha Mathews RN) Med Hx Psychiatric Disorders: No (09/04/2016 04:49:Samanhta Mathews RN) Med Hx Hepatitis/Liver Disease: No (09/04/2016 04:49:Samantha Mathews RN) Med Hx Varicosities/Phlebitis: No (09/04/2016 04:49:Samantha Mathews RN) Med Hx Thyroid Dysfunction: No (09/04/2016 04:49:Samantha Mathews RN) Med Hx Trauma/Violence: No (09/04/2016 04:49:Samantha Mathews RN) Med Hx Blood Transfusion: No (09/04/2016 04:49:Samantha Mathews RN) Med Hx Pulmonary (Asthma,TB): No (09/04/2016 04:49:Samantha Mathews RN) Med Hx Breast: No (09/04/2016 04:49:Samantha Mathews RN) Med Hx DANCE DIRECTOR Surgery: No (09/04/2016 04:49:Samantha Mathews RN) Med Hx Hospitalization/Surgery: No (09/04/2016 04:49:Samantha Mathews RN) Med Hx Anesthetic Complications: No (09/04/2016 04:49:Samantha Mathews RN) Med Hx Abnormal Pap Smear: No (09/04/2016 04:49:Samantha Mathews RN) Other Medical Diseases: No (09/04/2016 04:49:Samantha Mathews RN) Med Hx Significant Family Hx: No (09/04/2016 04:49:Samantha Mathews RN) INFECTIOUS HISTORY Inf Hx Gonorrhea: No (09/04/2016 04:49:Samantha Mathews RN) Inf Hx Chlamydia: Yes (09/04/2016 04:49:Samantha Mathews RN) Inf Hx Syphilis: No (09/04/2016 04:49:Samantha Mathews RN) Inf Hx HIV/AIDS: No (09/04/2016 04:49:Samantha Mathews RN) Inf Hx Human Papilloma Virus: No (09/04/2016 04:49:Samantha Mathews RN) Inf Hx Pt/Partner Genital Herpes: No (09/04/2016 04:49:Samantha Mathews RN) Inf Hx Tuberculosis/Exposure: No (09/04/2016 04:49:Samantha Mathews RN) Inf Hx Hepatitis B,C: No (09/04/2016 04:49:Samantha Mathews RN) Inf Hx Rash or Viral Illness: No (09/04/2016 04:49:Samantha Mathews RN) Details of Infectious Hx: Chlamydia 2011 (09/04/2016 04:49:Samantha Mathews RN) GENETIC HISTORY Gen Hx Age >=35 at [place]: No (09/04/2016 04:49:Samantha Mathews RN) Gen Hx Thalassemia: No (09/04/2016 04:49:Samantha Mathews RN) Gen Hx Congenital Heart Defect: No (09/04/2016 04:49:Samantha Mathews RN) Gen Hx Neural Tube Defect: No (09/04/2016 04:49:Samantha Mathews RN) Gen Hx Down's Syndrome: No (09/04/2016 04:49:Samantha Mathews RN) Gen Hx Tha-Sachs: No (09/04/2016 04:49:Samantha Mathews RN) Gen Hx Nakia: No (09/04/2016 04:49:Samantha Mathews RN) Gen Hx Familial Dysautonomia: No (09/04/2016 04:49:Samantha Mathews RN) Gen Hx Sickle Cell Disease/Trait: No (09/04/2016 04:49:Samantha Mathews RN) Gen Hx Hemophilia/Blood Disorder: No (09/04/2016 04:49:Samantha Mathews RN) Gen Hx Muscular Dystrophy: No (09/04/2016 04:49:Samantha Mathews RN) Gen Hx Cystic Fibrosis: No (09/04/2016 04:49:Samantha Mathews RN) Gen Hx [place] Chorea: No (09/04/2016 04:49:Samantha Mathews RN) Gen Hx Mental Retardation/Autism: No (09/04/2016 04:49:Samantha Mathews RN) Gen Hx Tested for Fragile X: No (09/04/2016 04:49:Samantha Mathews RN) Gen Hx Other Inher/Chromosomal: No (09/04/2016 04:49:Samantha Mathews RN) Gen Hx Maternal Metabolic DO: No (09/04/2016 04:49:Samantha Mathews RN) Gen Hx Pt Father or FOB Defect: No (09/04/2016 04:49:Samantha Mathews RN) Gen Hx Other Genetic History: No (09/04/2016 04:49:Samantha Mathews RN) Gen Hx Drugs/Meds since LMP: No (09/04/2016 04:49:Samantha Mathews RN)
[2016-09-06] MEDS: IBUPROFEN 800 MG TABLET PO SCH ×2 (05:16→13:40)
--- NOTE | 2016-09-06 06:01 | L&D General Admission ---
General Admit Datetime Report Generated by CPN: 09/06/2016 06:00 INFORMATION Patient Age: 25 (09/01/2016 08:27:QS system process) EDC: 09/04/2016 00:00 (09/04/2016 04:49:Nadia Schofield RN) : 3 (09/04/2016 04:49:Aneta Lynn RN) Para: 1 (09/04/2016 04:49:Nadia Schofield RN) Term: 1 (09/04/2016 04:49:Aneta Lynn RN) : 0 (09/04/2016 04:49:Nadia Schofield RN) Spontaneous Abortions: 1 (09/04/2016 04:49:Nadia Schofield RN) Induced Abortions: 0 (09/04/2016 04:49:Nadia Schofield RN) Livin (09/04/2016 04:49:Nadia Schofield RN) Cesareans: 0 (09/04/2016 04:49:Nadia Schofield RN) VBACs: 0 (09/04/2016 04:49:Nadia Schofield RN) Ectopic: 0 (09/04/2016 04:49:Nadia Schofield RN) Multiple Births: 0 (09/04/2016 04:49:Nadia Schofield RN) Baby, Number in Womb: 1 (09/04/2016 04:49:Nadia Schofield RN) CARE Primary Senior Quantity Surveyor[facility] (09/04/2016 04:49:Samantha Mathews RN) Month of 1st Visit: 12/2015 (09/04/2016 04:49:Samantha Mathews RN) Adequate Care: Yes (09/04/2016 04:49:Samantha Mathews RN) Height (in): 64 (09/04/2016 23:10:QS system process) ALLERGIES Medication Allergy: No (09/04/2016 04:49:Samantha Mathews RN) Medication Allergies: No Known Allergies (09/04/2016) (09/04/2016 05:00:QS system process) Latex Allergy: No Latex Allergies (09/04/2016 04:49:Samantha Mathews RN) Food Allergies: n/a (09/04/2016 04:49:Samantha Mathews RN) Environmental Allergies: n/a (09/04/2016 04:49:Samantha Mathews RN) COMMUNICATION Primary Language: Indonesian (09/04/2016 04:49:Samantha Mathews RN) Medical Tx Preferred Language: Indonesian (09/04/2016 04:49:Samantha Mathews RN) Indonesian Communication Ability: Speaks Indonesian; Reads Indonesian (09/04/2016 04:49:Samantha Mathews RN) Communication Barrier(s): None (09/04/2016 04:49:Samantha Mathesw RN) DEMOGRAPHICS Address[facility] [place] [place] [address] (09/01/2016 08:27:QS system process) Zipcode: [address] (09/01/2016 08:27:QS system process) Home (09/01/2016 08:27:QS system process) Work (09/04/2016 04:50:QS system process) N: [id number] (09/01/2016 08:27:QS system process) Next of Kin Name: JENN HENDRICKS (09/01/2016 08:27:QS system process) Next of Kin (09/01/2016 08:27:QS system process) Next of Kin Relationship: SPO (09/01/2016 08:27:QS system process) Date of : 1990 (09/01/2016 08:27:QS system process) Marital Status: Single (09/01/2016 08:27:QS system process) Sex: Female (09/01/2016 08:27:QS system process) Race: (09/01/2016 08:27:QS system process) Ethnicity: Non- or (09/01/2016 08:27:QS system process) Muslim: Restorationist (09/01/2016 08:27:QS system process) DRUG AND ALCOHOL USE Alcohol: No (09/04/2016 04:49:Samantha Mathews RN) Cigarettes: Former Smoker. [id number] (09/04/2016 04:49:Samantha Mathews RN) Cigarette Comments: 1 pack q2-3 days, quit with . (09/04/2016 04:49:Samantha Mathews RN) Marijuana: No (09/04/2016 04:49:Samantha Mathews RN) Cocaine: No (09/04/2016 04:49:Samantha Mathews RN) Other Illicit Drugs: No (09/04/2016 04:49:Samantha Mathews RN) VACCINE HISTORY Influenza Vaccine: Yes (09/04/2016 04:49:Samantha Mathews RN) Pneumococcal Vaccine: No (09/04/2016 04:49:Samantha Mathews RN) Tetanus Vaccine: Yes (09/04/2016 04:49:Samantha Mathews RN) Tdap Vaccine: Yes (09/04/2016 04:49:Samantha Mathews RN) Hepatitis B Vaccine: Yes (09/04/2016 04:49:Samantha Mathews RN) Milk Of Lime Slaker: [facility] (09/04/2016 04:49:Samantha Mathews RN) Feeding Preference: Breast (09/04/2016 04:49:Samantha Mathews RN) Benefit of Breast Feed Discussed: Yes (09/04/2016 04:49:Samantha Mathews RN) Circumcision: N/A (09/04/2016 04:49:Samantha Mathews RN) Classes Attended: No (09/04/2016 04:49:Samantha Mathews RN) Tubal Ligation: No (09/04/2016 04:49:Samantha Mathews RN) Tubal Authorization Signed: N/A (09/04/2016 04:49:Samantha Mathews RN) Consent: N/A (09/04/2016 04:49:Samantha Mathews RN) Consent Signed: N/A (09/04/2016 04:49:Samantha Mathews RN) Pain Management Plans: Medications (09/04/2016 04:49:Samantha Mathews RN) Other Labor and Delivery Plans: Delayed cord clamping (09/04/2016 04:49:Samantha Mathews RN) Support Person: Jenn Hendricks (09/04/2016 04:49:Samantha Mathews RN) Support Person Relationship: (09/04/2016 04:49:Samantha Mathews RN) Cultural/Spritual Practice: No (09/04/2016 04:49:Samantha Mathews RN) Spir/Cult Dietary Needs: No (09/04/2016 04:49:Samantha Mathews RN) LIVING SITUATION/DISCHARGE PLAN Living Arrangements: House (09/04/2016 04:49:Samantha Mathews RN) Adequate Access to:: Electric; Heat; Refrigeration; Plumbing/Running water; Phone; Transportation (09/04/2016 04:49:Samantha Mathews RN) WIC Program: Yes (09/04/2016 04:49:Samantha Mathews RN) Currently Using Commun Resources: Yes (09/04/2016 04:49:Samantha Mathews RN) Specify Current Resource Used: Medicaid (09/04/2016 04:49:Samantha Mathews RN) Car Seat for Discharge: Yes (09/04/2016 04:49:Samantha Mathews RN) Adoption Requested: No (09/04/2016 04:49:Samantha Mathews RN) LABS Blood Type: A Positive (09/04/2016 04:49:Aneta Lynn RN) Antibody Screen: Negative (09/04/2016 04:49:Aneta Lynn RN) Hemoglobin: 11.7 L (09/05/2016 06:53:QS system process) Hematocrit: 34.5 L (09/05/2016 06:53:QS system process) MCV: 97 (09/05/2016 06:53:QS system process) Group Beta Strep: Positive (09/04/2016 04:49:Aneta Lynn RN) Gonorrhea: Negative (09/04/2016 04:49:Aneta Lynn RN) Chlamydia: Negative (09/04/2016 04:49:Aneta Lynn RN) RPR/VDRL: Nonreactive (09/04/2016 04:49:Aneta Lynn RN) Rubella: Immune (09/04/2016 04:49:Aneta Lynn RN) OB/PREVIOUS HISTORY Current Procedures: Ultrasound; NST (09/04/2016 04:49:Samantha Mathews RN) History of Previous : No (09/04/2016 04:49:Samantha Mathews RN) History of Gestational Diabetes: No (09/04/2016 04:49:Samantha Mathews RN) History of PIH: No (09/04/2016 04:49:Samantha Mathews RN) History of Incompetent Cervix: No (09/04/2016 04:49:Samantha Mathews RN) History of Placenta Previa/Abrup: No (09/04/2016 04:49:Samantha Mathews RN) History of Macrosomia: No (09/04/2016 04:49:Samantha Matehws RN) History of IUGR: No (09/04/2016 04:49:Samantha Mathews RN) History of Hemorrhage: No (09/04/2016 04:49:Samantha Mathews RN) History of Loss/Stillborn: No (09/04/2016 04:49:Samantha Mathews RN) History of : No (09/04/2016 04:49:Samantha Mathews RN) History of D (Rh) Sensitization: No (09/04/2016 04:49:Samantha Mathews RN) History Recurrent Loss/Stillborn: No (09/04/2016 04:49:Samantha Mathews RN) History Depression/PP Depression: No (09/04/2016 04:49:Samantha Mathews RN) History of Uterine Anomaly/JOSEPH: No (09/04/2016 04:49:Samantha Mathews RN) History of Infertility: No (09/04/2016 04:49:Samantha Mathews RN) History of ART Treatment: No (09/04/2016 04:49:Samantha Mathews RN) History of JOSEPH: No (09/04/2016 04:49:Samantha Mathews RN) Comments Obstetrical History: G1- , baby girl 01/10, 7lb 3 oz G2- D_C, 04/17 G3- Current prengnancy (09/04/2016 04:49:Aneta Lynn RN) MEDICAL HISTORY Med Hx Diabetes: No (09/04/2016 04:49:Samantha Mathews RN) Med Hx Hypertension: No (09/04/2016 04:49:Samantha Mathews RN) Med Hx Heart Disease: No (09/04/2016 04:49:Samantha Mathews RN) Med Hx Autoimmune Disorder: No (09/04/2016 04:49:Samantha Mathews RN) Med Hx Kidney Disease/UTI: No (09/04/2016 04:49:Samantha Mathews RN) Med Hx Neurologic/Epilepsy: No (09/04/2016 04:49:Samantha Mathews RN) Med Hx Psychiatric Disorders: No (09/04/2016 04:49:Samantha Mathews RN) Med Hx Hepatitis/Liver Disease: No (09/04/2016 04:49:Samantha Mathews RN) Med Hx Varicosities/Phlebitis: No (09/04/2016 04:49:Samantha Mathews RN) Med Hx Thyroid Dysfunction: No (09/04/2016 04:49:Samantha Mathews RN) Med Hx Trauma/Violence: No (09/04/2016 04:49:Samantha Mathews RN) Med Hx Blood Transfusion: No (09/04/2016 04:49:Samantha Mathews RN) Med Hx Pulmonary (Asthma,TB): No (09/04/2016 04:49:Samantha Mathews RN) Med Hx Breast: No (09/04/2016 04:49:Samantha Mathews RN) Med Hx NIGHT CLEANER Surgery: No (09/04/2016 04:49:Samantha Mathews RN) Med Hx Hospitalization/Surgery: No (09/04/2016 04:49:Samantha Mathews RN) Med Hx Anesthetic Complications: No (09/04/2016 04:49:Samantha Mathews RN) Med Hx Abnormal Pap Smear: No (09/04/2016 04:49:Samantha Mathews RN) Other Medical Diseases: No (09/04/2016 04:49:aSmantha Mathews RN) Med Hx Significant Family Hx: No (09/04/2016 04:49:Samantha Mathews RN) INFECTIOUS HISTORY Inf Hx Gonorrhea: No (09/04/2016 04:49:Samantha Mathews RN) Inf Hx Chlamydia: Yes (09/04/2016 04:49:Samantha Mathews RN) Inf Hx Syphilis: No (09/04/2016 04:49:Samantha Mathews RN) Inf Hx HIV/AIDS: No (09/04/2016 04:49:Samantha Mathews RN) Inf Hx Human Papilloma Virus: No (09/04/2016 04:49:Samantha Mathews RN) Inf Hx Pt/Partner Genital Herpes: No (09/04/2016 04:49:Samantha Mathews RN) Inf Hx Tuberculosis/Exposure: No (09/04/2016 04:49:Samantha Mathews RN) Inf Hx Hepatitis B,C: No (09/04/2016 04:49:Samantha Mathews RN) Inf Hx Rash or Viral Illness: No (09/04/2016 04:49:Samantha Mathews RN) Details of Infectious Hx: Chlamydia 2011 (09/04/2016 04:49:Samantha Mathews RN) GENETIC HISTORY Gen Hx Age >=35 at [place]: No (09/04/2016 04:49:Samantha Mathews RN) Gen Hx Thalassemia: No (09/04/2016 04:49:Samantha Mathews RN) Gen Hx Congenital Heart Defect: No (09/04/2016 04:49:Samantha Mathews RN) Gen Hx Neural Tube Defect: No (09/04/2016 04:49:Samantha Mathews RN) Gen Hx Down's Syndrome: No (09/04/2016 04:49:Samantha Mathews RN) Gen Hx Tha-Sachs: No (09/04/2016 04:49:Samantha Mathews RN) Gen Hx Nakia: No (09/04/2016 04:49:Samantha Mathews RN) Gen Hx Familial Dysautonomia: No (09/04/2016 04:49:Samantha Mathews RN) Gen Hx Sickle Cell Disease/Trait: No (09/04/2016 04:49:Samantha Mathews RN) Gen Hx Hemophilia/Blood Disorder: No (09/04/2016 04:49:Samantha Mathews RN) Gen Hx Muscular Dystrophy: No (09/04/2016 04:49:Samantha Mathews RN) Gen Hx Cystic Fibrosis: No (09/04/2016 04:49:Samantha Mathews RN) Gen Hx Huntingtons Chorea: No (09/04/2016 04:49:Samantha Mathews RN) Gen Hx Mental Retardation/Autism: No (09/04/2016 04:49:Samantha Mathews RN) Gen Hx Tested for Fragile X: No (09/04/2016 04:49:Samantha Mathews RN) Gen Hx Other Inher/Chromosomal: No (09/04/2016 04:49:Samantha Mathews RN) Gen Hx Maternal Metabolic DO: No (09/04/2016 04:49:Samantha Mathews RN) Gen Hx Pt Father or FOB Defect: No (09/04/2016 04:49:Samantha Mathews RN) Gen Hx Other Genetic History: No (09/04/2016 04:49:Samantah Mathews RN) Gen Hx Drugs/Meds since LMP: No (09/04/2016 04:49:Samantha Mathews RN)
--- NOTE | 2016-09-06 06:01 | L&D Current Admission ---
Current Admit Datetime Report Generated by CPN: 09/06/2016 06:00 ADMISSION INFORMATION Current Admit Date/Time: 09/04/2016 16:20 (09/04/2016 16:00:AURY Jackson) Reason for Admission: Onset of Labor (09/04/2016 16:00:AURY Jackson) Chief Complaint: Contractions (09/04/2016 16:00:AURY Jackson) EGA per Dates: 40.0 (09/04/2016 16:00:QS system process) Method of Arrival: Wheelchair (09/04/2016 16:00:AURY Jackson) Admitted From: Home (09/04/2016 16:00:AURY Jackson) Reason for Induction: Not Applicable (09/04/2016 16:00:AURY Jackson) Records Available: Yes (09/04/2016 16:00:AURY Jackson) General Admission Information: Reviewed (09/04/2016 16:00:Sary Bellavance, RNC) BELONGINGS/ADVANCED DIRECTIVES Valuables/Personal Effects: None (09/04/2016 16:00:Sarywendy Tobiase, RNC) Disposition of Belongings: Kept with Patient (09/04/2016 16:00:Sary Bellavance, RNC) Advance Direct for Healthcare: No, and Wants No Information (09/04/2016 16:00:Sary Michelinee, RNC) Durable Power of Dead Mail Checker: No (09/04/2016 16:00:Sary Bellavance, RNC) Living Will: No (09/04/2016 16:00:Sary Bellavance, RNC) Organ Donor: No (09/04/2016 16:00:Sary Bellavance, RNC) Pt Rights Information Given: Yes (09/04/2016 16:00:Sary Bellavance, RNC) Pt Understands Pt Rights: Yes (09/04/2016 16:00:Sary Bellavance, RNC) LEARNING ASSESSMENT Knowledge Level: Understands L_D Process; Understands Care Activities; Understands Diagnosis (09/04/2016 16:00:AURY Jackson) Barriers to Learning: None (09/04/2016 16:00:AURY Jackson) Learning Readiness: Motivated (09/04/2016 16:00:AURY Jackson) Learns Best By: 1 to 1 Instruction; Reading; Videos; Group Discussion; Demonstration (09/04/2016 16:00:AURY Jackson) Learning Needs: Labor and Delivery Process; Pain Management; Symptoms to Report; Treatment Plan; Medication; Diagnosis; Nutrition; Equipment; Infant Care; Community Resources (09/04/2016 16:00:AURY Jackson) DOMESTIC VIOLANCE SCREENING Dom Viol Threatened/Hurt: No (09/04/2016 16:00:AURY Jackson) Hx of Abuse/Neglect past 2yrs: No (09/04/2016 16:00:AURY Jackson) Feel Unsafe Going Home: No (09/04/2016 16:00:AURY Jackson) Addt'l Observ Indicating Abuse: No (09/04/2016 16:00:AURY Jackson) Reason Unable to Complete Screen: N/A, Screen Completed (09/04/2016 16:00:AURY Jackson) Considered Personal Harm/Suicide: No (09/04/2016 16:00:AURY Jackson) NUTRITIONAL/FUNCTIONAL SCREENING Problem with Appetite >5 Days: No (09/04/2016 16:00:AURY Jackson) Chew/Swallow Difficulties: No (09/04/2016 16:00:AURY Jackson) Inappropriate Wt Gain/Loss: No (09/04/2016 16:00:AURY Jackson) Presence Skin Breakdown/Ulcer: No (09/04/2016 16:00:AURY Jackson) Special Diet: No (09/04/2016 16:00:AURY Jackson) Pt Requests Spa Associate Visit: No (09/04/2016 16:00:AURY Jackson) Hx of Any of the Following?: N/A (09/04/2016 16:00:AURY Jackson) New Diagnosis of: N/A (09/04/2016 16:00:AURY Jackson) Requires Assist w/Ambulation: Ofelia (09/04/2016 16:00:AURY Jackson) Uses Assist Device to Ambulate: No (09/04/2016 16:00:AURY Jackson) Pt Requires Help w/ADL's: Ofelia (09/04/2016 16:00:AURY Jackson)
[2016-09-06] MEDS: FERROUS SULFATE 325 MG TABLET PO SCH (09:01)
[2016-09-06] MEDS: SENNOSIDES/DOCUSATE 8.6-50 MG 1 EACH TABLET PO SCH (09:01)
[2016-09-06] MEDS: PRENATAL VITAMIN W-O CA NO5/FE FUMARATE/FA CAPSULE PO SCH (09:01)
[2016-09-06] MEDS: DOCUSATE SODIUM 100 MG CAPSULE PO SCH (09:01)
[2016-09-06] MEDS: SODIUM CHLORIDE NASAL SPRAY 44 ML NASL SCH ×2 (09:02→13:41)
[2016-09-06 09:13] VITALS: BP 109/65
--- NOTE | 2016-09-06 09:43 | PDOC DISCHARGE SUMMARY ---
Final Diagnosis Discharge Date: 09/06/16 - Final Diagnosis (1) Vaginal delivery Is this a current diagnosis for this admission?: Yes (2) Precipitate labor, delivered, current hospitalization Is this a current diagnosis for this admission?: Yes Discharge Data - Discharge Medication Home Medications: Vit #76/Iron,Carb/FA [Pnv 29-1 Tablet] 1 tab PO DAILY 09/04/16 Gestational Age: 40 Reason(s) for Admission: Onset of Labor, Group B Strep Positive - precip delivery not tx. Procedures: NST Intrapartum Procedure(s): Spontaneous Vaginal Delivery - [place] Data Baby 1 Female at 1 minute: 9 at 5 minutes: 9 Weight: 3260 kg Home with Mother: Yes Complications: Yes - gbs positive, no tx - Diagnosis Test Laboratory: Temp Pulse Resp BP Pulse Ox 99.2 F 78 16 109/65 100 09/06/16 08:05 09/06/16 08:05 09/06/16 08:05 09/06/16 08:05 09/06/16 08:05 09/04/16 09/05/16 17:18 06:53 RBC 3.79 3.58 L Hgb 12.5 11.7 L Hct 36.5 34.5 L - Discharge information/Instructions Discharge Activity: Activity As Tolerated, Pelvic Rest, No tub bath Discharge Diet: Regular Disposition: HOME, SELF-CARE Follow up with: [facility] in: 4, Weeks
--- NOTE | 2016-09-15 09:30 | Delivery Summary ---
Del Sum A-C Datetime Report Generated by CPN: 09/15/2016 09:30 ADMISSION DATA Chief Complaint: Uterine Contractions Indication for Induction: Not Applicable Admission Impression: Term, Intrauterine ; Active Labor; Ruptured Membranes Admission Impression Comments: GBS + Admit Provider Comments: Pt admited to L _ D in active labor, 9 cm/100/0, bbow SROM GBS +, delivery imminent, peds notified See record Anticipate DELIVERY PERSONNEL Delivery Doctor:: Kyara Brar CN Labor and Delivery Nurse:: Sary Arboleda, AURY World Designer/MOLD YARN SUPERVISOR: Amelia Lamb CST (Annotations: Data stored by Anabell on behalf of user) MATERNAL INFORMATION Delivery Anesthesia: None Estimated Blood Loss (ml): 200 Maternal Complications: Precipitous Labor (<3hrs) Provider Comments: of viable female over intact perienum. Head, shoulders, and body delivered without difficulty. Vigorous, spontaneous cry and respirations, to maternal abdomen, cord clamped X2, cut free after 2 minute delay, spontaneous delivery of intact placenta via husain mechanism, appears intact 3 VC. Vagina and perineum inspected, no lacerations noted. Hemostasis acheived with external fundal massage and IV pitocon, mother and infant in stable condition routine pp care. LABOR SUMMARY EDC: 09/04/2016 00:00 No. Babies in Womb: 1 Attempted: No Labor Anesthesia: None LABOR INFORMATION Reason for Induction: Not Applicable Onset of Labor: 09/04/2016 05:00 Complete Dilatation: 09/04/2016 15:58 Oxytocin: N/A Group B Beta Strep: Positive Antibiotics # of Doses: 0 Steroids Given: None Reason Steroids Not Administered: Not Applicable MEMBRANES Membranes Rupture Method: Spontaneous Rupture of Membranes: 09/04/2016 15:55 Length of Rupture (hr): 0.13 Amniotic Fluid Color: Clear Amniotic Fluid Amount: Moderate Amniotic Fluid Odor: Normal STAGES OF LABOR Stage 1 hr: 10 Stage 1 min: 58 Stage 2 hr: 0 Stage 2 min: 5 Stage 3 hr: 0 Stage 3 min: 7 Total Time in Labor hr: 11 Total Time in Labor min: 10 VAGINAL DELIVERY Episiotomy: None Laceration Extension: N/A Laceration Type: None Laceration Repair: Not Applicable Laceration Repair Note: n/a Sponge Count Correct: N/A Sharps Count Correct: N/A BABY A INFORMATION Infant Delivery Date/Time: 09/04/2016 16:03 Method of Delivery: Vaginal Born in Route : No : N/A Forceps: N/A Vacuum Extraction: N/A Shoulder Dystocia : No PRESENTATION/POSITION BABY A Presentation: Cephalic Cephalic Presentation: Vertex Vertex Position: Left Occipital Anterior Breech Presentation: N/A PLACENTA INFORMATION BABY A Placenta Delivery Time : 09/04/2016 16:10 Placenta Method of Delivery: Spontaneous Placenta Status: Delivered SCORES BABY A Heart Rate 1 min: >100 bpm Resp Effort 1 min: Good Cry Reflex Irritability 1 min: Cough or Sneeze or Pulls Away Muscle Tone 1 min: Active Motion Color 1 min: Body Coco, Extremities Blue Resuscitation Effort 1 min: Tactile Stimulation SCORE 1 MIN: 9 Heart Rate 5 min: >100 bpm Resp Effort 5 min: Good Cry Reflex Irritability 5 min: Cough or Sneeze or Pulls Away Muscle Tone 5 min: Active Motion Color 5 min: Body Coco, Extremities Blue Resuscitation Effort 5 min: Tactile Stimulation SCORE 5 MIN: 9 INFANT INFORMATION BABY A Gestational Age at Delivery: 40.0 Gestational Status: Full Term- 39- 40.6 Weeks Infant Outcome : Liveborn Infant Condition : Stable Sex: Female IDENTIFICATION BABY A Infant Verification Date/Time: 09/04/2016 16:35 ID Band Number: [id number] Mother's Name Verified: Yes RN Verifying : BL Roulund RN/D Bellavance RNC WEIGHT/LENGTH BABY A Birthweight (gm): 3260 Infant Weight (lb): 7 Weight (oz): 3 Length (in): 20.00 Infant Length (cm): 50.80 CORD INFORMATION BABY A No. Cord Vessels: 3 Nuchal Cord : N/A Cord Blood Taken: Yes-For Storage (Mom's Blood type +) Suction: None ASSESSMENT BABY A Infant Complications: None Physical Findings at Delivery: Within Normal Limits Respirations: Appears Normal Skin to Skin: Yes Skin to Skin Time (min): 45 Merchandise Displayer/ALS Called : No Transferred To: Remains with Mother SIGNATURES Assignment: Jolie Dobbs MD Signature: with User ID: [email or web address] : with User ID: [email or web address]
== END 2016-09-06 16:32 | disposition home or self-care (01) | DRG 775 ==
LOC: LC 15:39 → LR 16:01 → 2S 19:10
PROVIDERS: ADMIT Obstetrics & Gynecology; ATTEND Obstetrics & Gynecology
PROC: 10E0XZZ Delivery of Products of Conception, External Approach (ICD-10-PCS; principal; 2016-09-04)
PROC: 4A1HXCZ Monitoring of Products of Conception, Cardiac Rate, External Approach (ICD-10-PCS; 2016-09-04)
PROC: 4A1HXCZ Monitoring of Products of Conception, Cardiac Rate, External Approach (ICD-10-PCS; 2016-09-04)
DX: O99.824 Streptococcus B carrier state complicating childbirth (principal); O62.3 Precipitate labor; Z87.891 Personal history of nicotine dependence; Z3A.40 40 weeks gestation of pregnancy; Z37.0 Single live birth; O47.1 False labor at or after 37 completed weeks of gestation
CPT/HCPCS: 36415; 80307; 81005; 85025; 85027; 86592; 86850; 86900; 86901; J2590; J3490

== ENCOUNTER → 2019-06-08 | Outpatient (CLI) | payer OTHER ==
--- NOTE | 2019-06-08 16:45 | RADIOLOGY REPORT (SQ) ---
EXAM DESCRIPTION: OS CALCIS/HEEL RIGHT COMPLETED DATE/TIME: 06/08/2019 4:02 pm REASON FOR STUDY: PAIN IN RIGHT FOOT M79.671 PAIN IN RIGHT FOOT COMPARISON: None. NUMBER OF VIEWS: Two views. TECHNIQUE: Plantar and lateral images acquired of the right calcaneous. LIMITATIONS: None. FINDINGS: MINERALIZATION: Normal. BONES: No acute fracture or dislocation. No worrisome bone lesions. No significant osteophytes. JOINTS: No erosions. No alan-articular osteopenia. No chondrocalcinosis. SOFT TISSUES: No swelling. No calcifications. OTHER: No other significant finding. IMPRESSION: NEGATIVE STUDY OF THE RIGHT CALCANEOUS. NO ACUTE POST-TRAUMATIC CHANGES. NO EXPLANATION FOR PAIN. TECHNICAL DOCUMENTATION: JOB ID: [id number] [employer]- All Rights Reserved Reading location - IP/workstation name: [email or web address]
== END ==
LOC: OD 15:46
PROVIDERS: ATTEND Nurse Practitioner Acute Care
DX: M79.671 Pain in right foot (principal)